=== PATIENT | female | born 1965 | race American Indian/Alaskan Native ===

== ENCOUNTER 2017-03-29 04:32 | Emergency (ER) | payer OTHER ==
[2017-03-29 04:41] VITALS: RESP 16; TEMP 99.3; O2SAT 94
[2017-03-29] MEDS ORDERED: KETOROLAC 30 MG/1 ML SDV IVP ONE (05:09)
[2017-03-29 05:20] LABS: COLOR PALE YELLOW; LEUKOCYTE ESTERASE,URINE NEGATIVE (NEGATIVE); NITRITE,URINE NEGATIVE (NEGATIVE)
--- NOTE | 2017-03-29 05:23 | EDPHY ---
H & P Stated Complaint: back/upper abd pain Time Seen by Provider: 03/29/17 04:55 HPI/ROS: HPI The patient presents with upper back pain which began at about 1:00 a.m. this morning and awoke her from sleep. She initially was able to fall back asleep and then awoke at 3:00 a.m. with worsening pain. She describes it as a constant dull ache that she feels throughout her mid thoracic back and radiates forward toward her abdomen. She noted that she is tender in the right upper quadrant as well. She denies any exertion or injury. She has not had any falls. She does not have a rash. She does not have any shortness of breath. She has never had this pain before. She had some relief with ibuprofen. She does have a history of gallstones many years ago and ate a fatty meal for dinner. REVIEW OF SYSTEMS Constitutional: No fever, no chills. Eyes: No discharge. ENT: No sore throat. Cardiovascular: No chest pain, no palpitations. Respiratory: No cough, no shortness of breath. Gastrointestinal: No abdominal pain, no vomiting. Genitourinary: No hematuria. Musculoskeletal: Positive for back pain. Skin: No rashes. Neurological: No headache. 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, from [place] PHYSICAL General Appearance: Alert, no distress Eyes: Pupils equal and round no pallor or injection ENT, Mouth: Mucous membranes moist Respiratory: There are no retractions, lungs are clear to auscultation Cardiovascular: Regular rate and rhythm Gastrointestinal: Abdomen is soft with mild tenderness in the upper quadrants, no masses, bowel sounds normal Neurological: A&O, moves all extremities Skin: Warm and dry, no rashes Musculoskeletal: Neck is supple non tender, no midline thoracic spinal tenderness Extremities: symmetrical, full range of motion Psychiatric: Patient is oriented X 3, there is no agitation Source: Patient Exam Limitations: No limitations - Personal History LMP (Females 10-55): Irregular Current Tetanus/Diphtheria Vaccine: Yes Current Tetanus Diphtheria and Acellular Pertussis (TDAP): Yes - Medical/Surgical History Hx Asthma: No Hx Chronic Respiratory Disease: No Hx Diabetes: No Hx Cardiac Disease: No Hx Renal Disease: No Hx Cirrhosis: No Hx Alcoholism: No Hx HIV/AIDS: No Hx Splenectomy or Spleen Trauma: No Other PMH: seasonal allergies - Social History Smoking Status: Never smoked Constitutional: Initial Vital Signs Temperature (C) 37.4 C 03/29/17 04:38 Heart Rate 80 03/29/17 04:38 Respiratory Rate 16 03/29/17 04:38 Blood Pressure 190/109 H 03/29/17 04:38 O2 Sat (%) 94 03/29/17 04:38 O2 Delivery Mode Room Air Allergies/Adverse Reactions: acetaminophen [From Percocet] Allergy (Verified 03/29/17 04:38) latex Allergy (Verified 03/29/17 04:38) morphine Allergy (Verified 03/29/17 04:38) oxycodone [From Percocet] Allergy (Verified 03/29/17 04:38) Home Medications: Medication Instructions Recorded NK [No Known Home Meds] 03/29/17 Medical Decision Making - Diagnostics EKG Interpretation: EKG: Complete interpretation has been separately recorded in the [facility]ionic archive. Summary impression: Normal sinus rhythm Imaging Results: Chest x-ray shows no acute findings, radiology interpretation is pending Imaging: I viewed and interpreted images myself Differential Diagnosis: This is a 51-year-old female with upper back pain which has been present for the last several hours making it difficult for her to sleep. The pain radiates forward toward her abdomen. Differential diagnosis includes ACS, aortic dissection, PE, musculoskeletal pain , biliary colic, kidney stone. In the emergency room, chest x-ray, EKG, labs including D-dimer and UA were all checked and were unremarkable. The patient's pain improved with a dose of Toradol. The cause of her pain is likely muscular. However, I have instructed her that she needs to return to the emergency room if the pain becomes worse in any way. She is in agreement with this plan and will be discharged. - Data Points Laboratory Results: Laboratory Results 03/29/17 05:30 03/29/17 05:30 03/29/17 03/29/17 03/29/17 05:30 05:30 05:30 WBC 8.70 10^3/uL 10^3/uL (3.80-9.50) RBC 4.72 10^6/uL 10^6/uL (4.18-5.33) Hgb 13.5 g/dL g/dL (12.6-16.3) Hct 40.5 % % (38.0-47.0) MCV 85.8 fL fL (81.5-99.8) MCH 28.6 pg pg (27.9-34.1) MCHC 33.3 g/dL g/dL (32.4-36.7) RDW 14.6 % % (11.5-15.2) Plt Count 342 10^3/uL 10^3/uL (150-400) MPV 9.3 fL fL (8.7-11.7) Neut % (Auto) 52.3 % % (39.3-74.2) Lymph % (Auto) 37.6 % % (15.0-45.0) [place] % (Auto) 6.7 % % (4.5-13.0) Eos % (Auto) 2.4 % % (0.6-7.6) Baso % (Auto) 0.7 % % (0.3-1.7) Nucleat RBC Rel Count 0.0 % % (0.0-0.2) Absolute Neuts (auto) 4.55 10^3/uL 10^3/uL (1.70-6.50) Absolute Lymphs (auto) 3.27 10^3/uL H 10^3/uL (1.00-3.00) Absolute Monos (auto) 0.58 10^3/uL 10^3/uL (0.30-0.80) Absolute Eos (auto) 0.21 10^3/uL 10^3/uL (0.03-0.40) Absolute Basos (auto) 0.06 10^3/uL 10^3/uL (0.02-0.10) Absolute Nucleated RBC 0.00 10^3/uL 10^3/uL (0-0.01) Immature Gran % 0.3 % % (0.0-1.1) Immature Gran # 0.03 10^3/uL 10^3/uL (0.00-0.10) D-Dimer < 0.27 ug/mLFEU ug/mLFEU (0.00-0.50) Sodium 145 mEq/L H mEq/L (134-144) Potassium 4.1 mEq/L mEq/L (3.5-5.2) Chloride 110 mEq/L mEq/L (97-110) Carbon Dioxide 20 mEq/l L mEq/l (22-31) Anion Gap 15 mEq/L mEq/L (8-16) BUN 13 mg/dL mg/dL (7-23) Creatinine 0.7 mg/dL mg/dL (0.6-1.0) Estimated GFR > 60 Glucose 119 mg/dL H mg/dL (70-100) Calcium 10.2 mg/dL mg/dL (8.5-10.4) Total Bilirubin 0.7 mg/dL mg/dL (0.1-1.4) Conjugated Bilirubin 0.3 mg/dL mg/dL (0.0-0.5) Unconjugated Bilirubin 0.4 mg/dL mg/dL (0.0-1.1) AST 29 IU/L IU/L (14-46) ALT 43 IU/L IU/L (9-52) Alkaline Phosphatase 128 IU/L H IU/L (38-126) Troponin I < 0.012 ng/mL ng/mL (0-0.034) Total Protein 8.4 g/dL H g/dL (6.3-8.2) Albumin 4.6 g/dL g/dL (3.5-5.0) Lipase 71.0 IU/L IU/L (23-300) Urine Color Urine Appearance Urine pH Ur Specific [place] Urine Protein Urine Ketones Urine Blood Urine Nitrate Urine Bilirubin Urine Urobilinogen Ur Leukocyte Esterase Urine Glucose 03/29/17 04:52 WBC RBC Hgb Hct MCV MCH MCHC RDW Plt Count MPV Neut % (Auto) Lymph % (Auto) [place] % (Auto) Eos % (Auto) Baso % (Auto) Nucleat RBC Rel Count Absolute Neuts (auto) Absolute Lymphs (auto) Absolute Monos (auto) Absolute Eos (auto) Absolute Basos (auto) Absolute Nucleated RBC Immature Gran % Immature Gran # D-Dimer Sodium Potassium Chloride Carbon Dioxide Anion Gap BUN Creatinine Estimated GFR Glucose Calcium Total Bilirubin Conjugated Bilirubin Unconjugated Bilirubin AST ALT Alkaline Phosphatase Troponin I Total Protein Albumin Lipase Urine Color PALE YELLOW Urine Appearance CLEAR Urine pH 7.0 (5.0-7.5) Ur Specific [place] 1.009 (1.002-1.030) Urine Protein NEGATIVE (NEGATIVE) Urine Ketones NEGATIVE (NEGATIVE) Urine Blood NEGATIVE (NEGATIVE) Urine Nitrate NEGATIVE (NEGATIVE) Urine Bilirubin NEGATIVE (NEGATIVE) Urine Urobilinogen NEGATIVE EU EU (0.2-1.0) Ur Leukocyte Esterase NEGATIVE (NEGATIVE) Urine Glucose NEGATIVE (NEGATIVE) Medications Given: Discontinued Medications Ketorolac Tromethamine (Toradol) 15 mg IVP EDNOW ONE Stop: 03/29/17 05:10 Last Admin: 03/29/17 05:31 Dose: 15 mg Departure - Departure Disposition: Home, Routine, Self-Care Clinical Impression: Thoracic back pain Condition: Good Instructions: Back Pain (ED) Additional Instructions: Please return to the emergency room if your pain is worse in any way. I recommend you take ibuprofen 600 mg every 6 hours as needed for pain. You can use a hot compress or ice if that helps. I have referred you to primary care and I would like for you to call to make an appointment tomorrow. Referrals: Rose Jones MD [Medical Doctor] - As per Instructions
--- NOTE | 2017-03-29 05:39 | CPEKG ---
Heart Rate: 75 RR Interval: 800 P-R Interval: 132 QRSD Interval: 92 QT Interval: 380 QTC Interval: 425 P Elkins: 8 QRS Elkins: -22 T Wave Elkins: 9 EKG Severity - ABNORMAL ECG - EKG Impression: SINUS RHYTHM EKG Impression: CONSIDER LEFT VENTRICULAR HYPERTROPHY Electronically Signed By: Parul Murillo 29-Mar-2017 07:17:46
[2017-03-29 05:41] LABS: % IMMATURE GRANULYOCYTES 0.3 % (0.0-1.1); ABSOLUTE IMMATURE GRANULOCYTES 0.03 10^3/uL (0.00-0.10); ADD DIFF? NO; ADD MORPH? NO; ADD SCAN? NO; ATYPICAL LYMPHOCYTE FLAG 10 (0-99); FRAGMENT RBC FLAG 0 (0-99); HEMATOCRIT 40.5 % (38.0-47.0); HEMOGLOBIN 13.5 g/dL (12.6-16.3); LEFT SHIFT FLG 0 (0-99); LIPEMIA HEMOLYSIS FLAG 80 (0-99); MEAN CELL HEMOGLOBIN 28.6 pg (27.9-34.1); MEAN CELL HEMOGLOBIN CONCENTR. 33.3 g/dL (32.4-36.7); MEAN CELL VOLUME 85.8 fL (81.5-99.8); MEAN PLATELET VOLUME 9.3 fL (8.7-11.7); PLATELET CLUMPS FLAG 0 (0-99); PLATELET COUNT 342 10^3/uL (150-400); RED BLOOD CELL COUNT 4.72 10^6/uL (4.18-5.33); RED CELL DISTRIBUTION WIDTH 14.6 % (11.5-15.2)
[2017-03-29 06:01] LABS: ALANINE AMINOTRANSFERASE 43 IU/L (9-52); ALBUMIN 4.6 g/dL (3.5-5.0); ALKALINE PHOSPHATASE 128 IU/L (38-126); ANION GAP 15 mEq/L (8-16); ASPARTATE AMINOTRANSFERASE 29 IU/L (14-46); BILIRUBIN,TOTAL 0.7 mg/dL (0.1-1.4); BILIRUBIN-CONJUGATED 0.3 mg/dL (0.0-0.5); BILIRUBIN-UNCONJUGATED 0.4 mg/dL (0.0-1.1); CALCIUM 10.2 mg/dL (8.5-10.4); CARBON DIOXIDE 20 mEq/l (22-31); CHLORIDE 110 mEq/L (97-110); CREATININE 0.7 mg/dL (0.6-1.0); GLOMERULAR FILTRATION RATE > 60; GLUCOSE 119 mg/dL (70-100); POTASSIUM 4.1 mEq/L (3.5-5.2); SODIUM 145 mEq/L (134-144); TOTAL PROTEIN 8.4 g/dL (6.3-8.2)
[2017-03-29 06:12] LABS: TROPONIN I < 0.012 ng/mL (0-0.034)
[2017-03-29 07:25] VITALS: BP 142/85; PULSE 75
== END 2017-03-29 07:24 | disposition home or self-care (01) ==
DX: M54.6 Pain in thoracic spine (principal); Z91.040 Latex allergy status
CPT/HCPCS: 96374; J1885